=== PATIENT | female | born 1940 | race Two or more races ===

== ENCOUNTER 2016-04-24 16:26 | Inpatient (IN) | payer OTHER ==
[~2016-04-24] VITALS: Ht 152.4 cm; Wt 49.9 kg
[2016-04-24] MEDS ORDERED: IV NS 0.9% 1,000 ML ONE (16:56)
[2016-04-24] MEDS ORDERED: IV SET PRIMARY PUMP SET 1 EA INFUS.SET MC ONE (16:56)
[2016-04-24] MEDS ORDERED: CEFTRIAXONE 1GM BAG (ER ONLY) 50 ML IV ONE ×2 (16:56→17:00)
[2016-04-24] MEDS ORDERED: VANCOMYCIN 1 GM in IV D5W 250 ML IV ONE (17:00)
[2016-04-24] MEDS ORDERED: IV NS 0.9% 1,000 ML BAG IV ONE (17:00)
[2016-04-24 17:05] LABS: BASOPHILS % (AUTO) 0.6 % (0.0-2.0); DIFF TOTAL % 100 %; EOSINOPHILS # (AUTO) 0.1 /CMM (0.0-0.7); EOSINOPHILS % (AUTO) 0.9 % (0.0-6.0); HEMATOCRIT 38 % (33-45); HEMOGLOBIN 12.3 g/dL (11.5-14.8); LYMPHOCYTES % (AUTO) 13.2 % (20.0-44.0); MEAN CORPUSCULAR HEMOGLOBIN 28 PG (26.0-33.0); MEAN CORPUSCULAR HGB CONC 32 g/dl (31.0-36.0); MEAN CORPUSCULAR VOLUME 86 fL (82-100); MONOCYTES # (AUTO) 0.7 /CMM (0.1-1.30); MONOCYTES % (AUTO) 9.2 % (2.0-12.0); NEUTROPHILS # (AUTO) 5.9 /CMM (1.8-8.9); NEUTROPHILS % (AUTO) 76.1 % (43.0-81.0); PLATELET COUNT (AUTO) 293 /CMM (150-450); RED BLOOD CELL COUNT(AUTO) 4.45 MIL/uL (4.0-5.2); WHITE BLOOD COUNT (AUTO) 7.8 K/uL (4.3-11.0)
[2016-04-24 17:15] LABS: ANION GAP 11 (5-14); CALCIUM, SERUM 8.6 mg/dL (8.5-10.1); CARBON DIOXIDE 26 mmol/L (21-32); CHLORIDE 109 mmol/L (98-107); GLUCOSE 95 mg/dL (74-106); POTASSIUM 3.7 mmol/L (3.5-5.1); SODIUM SERUM 142 mmol/L (136-145); UREA NITROGEN, BLOOD 19 mg/dL (7-18)
[2016-04-24 17:19] LABS: INR 0.95 (0.87-1.13); PROTHROMBIN TIME 10.3 SECS (9.5-12.7)
[2016-04-24 17:21] LABS: ALANINE AMINOTRANSFERASE 41 U/L (12-78); ALBUMIN 3.3 g/dL (3.4-5.0); ASPARTATE AMINOTRANSFERASE 27 U/L (15-37); BILIRUBIN,DIRECT 0.1 mg/dL (0.0-0.2); BILIRUBIN,TOTAL 0.4 mg/dL (0.2-1.0); INDIRECT BILIRUBIN 0.3 mg/dL (0.0-1.1); TOTAL PROTEIN, SERUM 7.3 g/dL (6.4-8.2)
[2016-04-24] MEDS ORDERED: ACETAMINOPHEN ES 500 MG TABLET ONE (17:22)
[2016-04-24 17:23] LABS: LACTIC ACID 0.8 mmol/L (0.4-2.0); TROPONIN I < 0.017 ng/mL (0.00-0.056)
[2016-04-24] MEDS ORDERED: ACETAMINOPHEN 325 MG TABLET PO ONE (17:30)
[2016-04-24 18:49] VITALS: BP 105/54
[2016-04-24 20:00] VITALS: BP_SYST 100; BP_SYST 104; BP_DIAS 47; BP_DIAS 56
[2016-04-24] MEDS ORDERED: MAG HYDROX/AL HYDROX/SIMETH 30 ML UDC PO PRN (22:00)
[2016-04-24] MEDS ORDERED: ENOXAPARIN SODIUM 40 MG/0.4 ML DISP.SYRIN SQ SCH (22:00)
[2016-04-24] MEDS ORDERED: Z GUARD REMEDY 2 OZ OINT TP PRN (22:00)
[2016-04-24] MEDS ORDERED: MAGNESIUM HYDROXIDE 30 ML UDC PO PRN (22:00)
[2016-04-24] MEDS ORDERED: ACETAMINOPHEN 325 MG TABLET PO PRN (22:00)
[2016-04-24] MEDS ORDERED: ZOLPIDEM TARTRATE 5 MG TABLET PO PRN (22:00)
[2016-04-24] MEDS ORDERED: ACETAMINOPHEN 325 MG TABLET ONE (22:40)
[2016-04-24] MEDS ORDERED: HYDROCODONE/APAP 5/325MG 1 EACH TABLET ONE (22:51)
[2016-04-24] MEDS: HYDROCODONE/APAP 5/325MG 1 EACH TABLET PO PRN (22:56)
[2016-04-25 04:00] VITALS: BP 104/49
[2016-04-25 06:51] LABS: BASOPHILS % (AUTO) 0.4 % (0.0-2.0); DIFF TOTAL % 100 %; EOSINOPHILS # (AUTO) 0.1 /CMM (0.0-0.7); EOSINOPHILS % (AUTO) 0.8 % (0.0-6.0); HEMATOCRIT 34 % (33-45); HEMOGLOBIN 11.1 g/dL (11.5-14.8); LYMPHOCYTES # (AUTO) 0.8 /CMM (0.8-4.8); LYMPHOCYTES % (AUTO) 8.2 % (20.0-44.0); MEAN CORPUSCULAR HEMOGLOBIN 29 PG (26.0-33.0); MEAN CORPUSCULAR HGB CONC 33 g/dl (31.0-36.0); MEAN CORPUSCULAR VOLUME 87 fL (82-100); MONOCYTES # (AUTO) 0.8 /CMM (0.1-1.30); MONOCYTES % (AUTO) 8.6 % (2.0-12.0); NEUTROPHILS # (AUTO) 7.6 /CMM (1.8-8.9); PLATELET COUNT (AUTO) 226 /CMM (150-450); RED BLOOD CELL COUNT(AUTO) 3.85 MIL/uL (4.0-5.2); WHITE BLOOD COUNT (AUTO) 9.2 K/uL (4.3-11.0)
[2016-04-25 07:23] LABS: THYROID STIMULATING HORMONE 3.406 uIU/mL (0.358-3.74)
[2016-04-25 07:26] LABS: ALBUMIN 2.4 g/dL (3.4-5.0); BILIRUBIN,TOTAL 0.5 mg/dL (0.2-1.0); CALCIUM, SERUM 7.6 mg/dL (8.5-10.1); PHOSPHORUS 2.9 mg/dL (2.5-4.9); TOTAL PROTEIN, SERUM 5.8 g/dL (6.4-8.2)
[2016-04-25] MEDS ORDERED: FEE PK DOSING 1 MIN EA MC ONE (07:38)
[2016-04-25 08:00] VITALS: BP 95/40
[2016-04-25 08:10] VITALS: BP 95/40
[2016-04-25] MEDS: VANCOMYCIN 500 MG in IV D5W 100 ML IV SCH ×2 (08:53→21:38)
[2016-04-25] MEDS: PANTOPRAZOLE 40 MG TABLET.DR PO SCH (08:53)
[2016-04-25] MEDS ORDERED: IV SET PRIMARY PUMP SET 1 EA INFUS.SET MC ONE (08:54)
[2016-04-25] MEDS ORDERED: SECONDARY IV SET 1 EA INFUS.SET MC ONE (08:54)
[2016-04-25] MEDS ORDERED: IV NS 0.9% 250 ML IV ONE (08:54)
[2016-04-25] MEDS: HYDROCODONE/APAP 5/325MG 1 EACH TABLET PO PRN (15:24)
[2016-04-25 16:00] VITALS: BP 116/43
[2016-04-25] MEDS: ONDANSETRON HCL/PF 4 MG/2 ML VIAL IVP PRN (18:19)
[2016-04-25 20:00] VITALS: BP 108/47
[2016-04-25 21:00] VITALS: BP 108/47
[2016-04-25] MEDS: ENOXAPARIN SODIUM 30 MG/0.3 ML DISP.SYRIN SQ SCH (21:37)
[2016-04-26 04:00] VITALS: BP 101/48
[2016-04-26] MEDS: PANTOPRAZOLE 40 MG TABLET.DR PO SCH (06:44)
[2016-04-26 08:00] VITALS: BP 103/42
[2016-04-26 08:11] LABS: BASOPHILS # (AUTO) 0.1 /CMM (0.0-0.2); BASOPHILS % (AUTO) 0.6 % (0.0-2.0); DIFF TOTAL % 100 %; EOSINOPHILS # (AUTO) 0.1 /CMM (0.0-0.7); EOSINOPHILS % (AUTO) 1.5 % (0.0-6.0); HEMATOCRIT 33 % (33-45); HEMOGLOBIN 10.8 g/dL (11.5-14.8); LYMPHOCYTES # (AUTO) 0.6 /CMM (0.8-4.8); LYMPHOCYTES % (AUTO) 7.5 % (20.0-44.0); MEAN CORPUSCULAR HEMOGLOBIN 29 PG (26.0-33.0); MEAN CORPUSCULAR HGB CONC 33 g/dl (31.0-36.0); MEAN CORPUSCULAR VOLUME 87 fL (82-100); MONOCYTES # (AUTO) 0.5 /CMM (0.1-1.30); MONOCYTES % (AUTO) 6.3 % (2.0-12.0); NEUTROPHILS # (AUTO) 7.2 /CMM (1.8-8.9); NEUTROPHILS % (AUTO) 84.1 % (43.0-81.0); PLATELET COUNT (AUTO) 200 /CMM (150-450); RED BLOOD CELL COUNT(AUTO) 3.78 MIL/uL (4.0-5.2); WHITE BLOOD COUNT (AUTO) 8.6 K/uL (4.3-11.0)
[2016-04-26 08:22] LABS: CALCIUM, SERUM 7.6 mg/dL (8.5-10.1); CREATININE 1.1 mg/dL (0.6-1.3); POTASSIUM 3.8 mmol/L (3.5-5.1)
[2016-04-26] MEDS: VANCOMYCIN 500 MG in IV D5W 100 ML IV SCH ×2 (09:16→21:11)
[2016-04-26] MEDS: ONDANSETRON HCL/PF 4 MG/2 ML VIAL IVP PRN (12:28)
[2016-04-26 16:00] VITALS: BP 120/59
[2016-04-26] MEDS: HYDROCODONE/APAP 5/325MG 1 EACH TABLET PO PRN (16:31)
[2016-04-26 19:59] VITALS: BP 107/41
[2016-04-26 21:00] VITALS: BP 107/41
[2016-04-26] MEDS: ENOXAPARIN SODIUM 30 MG/0.3 ML DISP.SYRIN SQ SCH (21:12)
[2016-04-27 04:00] VITALS: BP 113/74
[2016-04-27] MEDS: PANTOPRAZOLE 40 MG TABLET.DR PO SCH (06:11)
[2016-04-27] MEDS: HYDROCODONE/APAP 5/325MG 1 EACH TABLET PO PRN ×2 (06:12→18:31)
[2016-04-27 07:34] LABS: CREATININE 0.9 mg/dL (0.6-1.3)
[2016-04-27 08:00] VITALS: BP 102/40
[2016-04-27] MEDS: VANCOMYCIN 500 MG in IV D5W 100 ML IV SCH ×2 (09:18→20:50)
[2016-04-27 16:00] VITALS: BP 106/40
[2016-04-27 19:50] LABS: KETONES,URINE NEGATIVE (NEGATIVE); LEUKOCYTE ESTERASE ,URINE 3+ (NEGATIVE)
[2016-04-27 20:00] VITALS: BP 110/47
[2016-04-27 20:15] LABS: ADD UA MICROSCOPIC YES
[2016-04-27] MEDS: ENOXAPARIN SODIUM 30 MG/0.3 ML DISP.SYRIN SQ SCH (20:51)
[2016-04-27 21:16] LABS: ADD URINE CULTURE YES; WBC,URINE 25-30 /HPF (0-3)
[2016-04-28 04:00] VITALS: BP 117/60
[2016-04-28] MEDS: PANTOPRAZOLE 40 MG TABLET.DR PO SCH (07:30)
[2016-04-28 08:00] VITALS: BP 120/56
[2016-04-28 08:39] LABS: CREATININE 0.9 mg/dL (0.6-1.3)
[2016-04-28] MEDS: VANCOMYCIN 500 MG in IV D5W 100 ML IV SCH ×2 (09:00→21:05)
[2016-04-28] MEDS: CEFTRIAXONE 1 G in IV D5W 50 ML IV SCH (10:00)
[2016-04-28] MEDS ORDERED: IV SET PRIMARY 1 EA INFUS.SET MC ONE (12:17)
[2016-04-28] MEDS ORDERED: IV SET PRIMARY PUMP SET 1 EA INFUS.SET MC ONE ×2 (12:29→20:59)
[2016-04-28] MEDS ORDERED: ANESTHESIA TRAY IN PYXIS 1 EA TRAY MC ONE (15:40)
[2016-04-28 16:00] VITALS: BP 135/61
[2016-04-28] MEDS: HYDROCODONE/APAP 5/325MG 1 EACH TABLET PO PRN ×2 (17:56→22:31)
[2016-04-28 20:00] VITALS: BP 116/59
[2016-04-28] MEDS ORDERED: IV NS 0.9% 250 ML IV ONE (20:59)
[2016-04-28] MEDS ORDERED: SECONDARY IV SET 1 EA INFUS.SET MC ONE (20:59)
[2016-04-28] MEDS: ENOXAPARIN SODIUM 30 MG/0.3 ML DISP.SYRIN SQ SCH (21:07)
[2016-04-29] MEDS: HYDROCODONE/APAP 5/325MG 1 EACH TABLET PO PRN ×5 (02:22→22:05)
[2016-04-29 07:41] LABS: CALCIUM, SERUM 8.1 mg/dL (8.5-10.1); POTASSIUM 4.3 mmol/L (3.5-5.1)
[2016-04-29 08:00] VITALS: BP 125/63
[2016-04-29] MEDS ORDERED: SECONDARY IV SET 1 EA INFUS.SET MC ONE (08:27)
[2016-04-29] MEDS: PANTOPRAZOLE 40 MG TABLET.DR PO SCH (08:46)
[2016-04-29] MEDS: VANCOMYCIN 500 MG in IV D5W 100 ML IV SCH ×2 (08:46→22:05)
[2016-04-29] MEDS: CEFTRIAXONE 1 G in IV D5W 50 ML IV SCH (10:15)
[2016-04-29] MEDS: LACTOBACILLUS RHAMNOSUS GG 1 EACH CAP.SPRINK PO SCH (17:00)
[2016-04-29 20:00] VITALS: BP 127/62
[2016-04-29] MEDS: ENOXAPARIN SODIUM 30 MG/0.3 ML DISP.SYRIN SQ SCH (22:15)
[2016-04-30] MEDS: HYDROCODONE/APAP 5/325MG 1 EACH TABLET PO PRN ×2 (05:53→23:29)
[2016-04-30] MEDS: PANTOPRAZOLE 40 MG TABLET.DR PO SCH (07:26)
[2016-04-30 08:00] VITALS: BP 134/47
[2016-04-30 08:02] LABS: CREATININE 1.1 mg/dL (0.6-1.3)
[2016-04-30] MEDS: VANCOMYCIN 500 MG in IV D5W 100 ML IV SCH (08:46)
[2016-04-30] MEDS: LACTOBACILLUS RHAMNOSUS GG 1 EACH CAP.SPRINK PO SCH ×2 (08:46→16:25)
[2016-04-30] MEDS: CEFTRIAXONE 1 G in IV D5W 50 ML IV SCH (10:05)
[2016-04-30] MEDS ORDERED: SECONDARY IV SET 1 EA INFUS.SET MC ONE (10:07)
[2016-04-30] MEDS ORDERED: IV NS 0.9% 250 ML IV ONE (10:08)
[2016-04-30 16:00] VITALS: BP 125/50
[2016-04-30] MEDS: VANCOMYCIN 0.75 GM in IV D5W 250 ML IV SCH (16:25)
[2016-04-30 18:35] VITALS: BP 125/50
[2016-04-30 20:00] VITALS: BP 130/60
[2016-04-30] MEDS: ENOXAPARIN SODIUM 30 MG/0.3 ML DISP.SYRIN SQ SCH (20:42)
[2016-05-01] MEDS: VANCOMYCIN 0.75 GM in IV D5W 250 ML IV SCH ×2 (04:24→16:38)
[2016-05-01 06:57] LABS: CALCIUM, SERUM 8.2 mg/dL (8.5-10.1); CREATININE 1.1 mg/dL (0.6-1.3); POTASSIUM 4.1 mmol/L (3.5-5.1)
[2016-05-01 08:00] VITALS: BP 128/51
[2016-05-01] MEDS: PANTOPRAZOLE 40 MG TABLET.DR PO SCH (08:48)
[2016-05-01] MEDS: LACTOBACILLUS RHAMNOSUS GG 1 EACH CAP.SPRINK PO SCH ×2 (08:48→16:37)
[2016-05-01] MEDS: HYDROCODONE/APAP 5/325MG 1 EACH TABLET PO PRN ×3 (08:55→21:45)
[2016-05-01] MEDS: CEFTRIAXONE 1 G in IV D5W 50 ML IV SCH (08:59)
[2016-05-01 16:00] VITALS: BP 120/63
[2016-05-01 20:00] VITALS: BP 135/70
[2016-05-01] MEDS: ENOXAPARIN SODIUM 30 MG/0.3 ML DISP.SYRIN SQ SCH (21:36)
[2016-05-02 04:00] VITALS: BP 135/69
[2016-05-02] MEDS: HYDROCODONE/APAP 5/325MG 1 EACH TABLET PO PRN ×2 (04:13→12:42)
[2016-05-02] MEDS: VANCOMYCIN 0.75 GM in IV D5W 250 ML IV SCH (04:13)
[2016-05-02] MEDS: PANTOPRAZOLE 40 MG TABLET.DR PO SCH (06:59)
[2016-05-02 08:00] VITALS: BP 128/71
[2016-05-02 08:27] LABS: CALCIUM, SERUM 7.8 mg/dL (8.5-10.1); CREATININE 1.1 mg/dL (0.6-1.3); POTASSIUM 3.7 mmol/L (3.5-5.1)
[2016-05-02] MEDS: LACTOBACILLUS RHAMNOSUS GG 1 EACH CAP.SPRINK PO SCH (09:12)
[2016-05-02] MEDS: CEFTRIAXONE 1 G in IV D5W 50 ML IV SCH (09:12)
[2016-05-02 16:00] VITALS: BP 132/73
[2016-05-03] MEDS ORDERED: VANCOMYCIN 0.75 GM in IV D5W 250 ML IV SCH (06:00)
== END 2016-05-02 17:50 | DRG 570 ==
LOC: ER 16:28 → MEDSG1 18:41
PROVIDERS: ADMIT Nurse Practitioner Acute Care; ATTEND Nurse Practitioner Acute Care
PROC: 0JBN0ZZ Excision of Right Lower Leg Subcutaneous Tissue and Fascia, Open Approach (ICD-10-PCS; 2016-04-28)
PROC: 0JBP0ZZ Excision of Left Lower Leg Subcutaneous Tissue and Fascia, Open Approach (ICD-10-PCS; principal; 2016-04-28 12:40)
DX: L03.115 Cellulitis of right lower limb (principal); I50.33 Acute on chronic diastolic (congestive) heart failure; L97.919 Non-pressure chronic ulcer of unspecified part of right lower leg with unspecified severity; L97.929 Non-pressure chronic ulcer of unspecified part of left lower leg with unspecified severity; N39.0 Urinary tract infection, site not specified; R60.0 Localized edema; L03.116 Cellulitis of left lower limb; I83.019 Varicose veins of right lower extremity with ulcer of unspecified site; I83.029 Varicose veins of left lower extremity with ulcer of unspecified site
CPT/HCPCS: 36415; 71010-TC; 80048-TC; 80053-TC; 80061-TC; 80076-TC; 80202-TC; 81000-TC; 83605-TC; 83735-TC; 83880; 84100-TC; 84443-TC; 84484-TC; 85025-TC; 85730-TC; 86850-TC; 87040-TC; 87081-TC; 87086-TC; 93307-TC; 93970-TC; 94799-TC; 97001-TC; 97116-TC; 97530-TC; A4606; A6253; A6402; A6403; J0696; J1650; J2405; J3370; J7030; J7050; J7060; Z7610